=== PATIENT | male | born 1965 | race Caucasian/White ===

== ENCOUNTER 2018-06-24 20:39 | Inpatient (IN) | payer OTHER ==
[~2018-06-24] VITALS: Ht 188 cm; Wt 137.4 kg
[2018-06-24 20:44] VITALS: BP 167/100
[2018-06-24] MEDS ORDERED: LAMICTAL100 MG (20:47)
[2018-06-24] MEDS ORDERED: AMLODIPINE BESY10 MG (20:49)
[2018-06-24] MEDS ORDERED: [UNRECOGNIZED DRUG - OTHER] (20:51)
[2018-06-24 21:31] LABS: ABSOLUTE BASOPHILS 0.2 thou/uL (0.0-0.2); ABSOLUTE EOSINOPHILS 0.4 thou/uL (0.0-0.7); ABSOLUTE LYMPHOCYTES 2.1 thou/uL (0.8-5.3); ABSOLUTE MONOCYTES 0.8 thou/uL (0.0-1.2); ABSOLUTE NEUTROPHILS 11.1 thou/uL (1.6-8.1); BASOPHILS 1.2 %; EOSINOPHILS 2.8 %; HEMATOCRIT 44.8 % (42.0-52.0); HEMOGLOBIN 15.1 gm/dL (14.0-18.0); LYMPHOCYTES 14.3 %; MCH 28.2 pg (26.0-34.0); MCHC 33.8 g/dL (28.0-37.0); MCV 83.5 fL (80.0-100.0); MONOCYTES 5.8 %; MPV 8.1 fl. (7.2-11.1); NUCLEATED RBCS 0 /100WBC; PLATELET COUNT* 282 thou/uL (150-400); POLYS 75.9 %; RBC 5.36 mil/uL (4.50-6.00); RDW-CV 13.6 % (10.5-14.5); WBC 14.6 thou/uL (4.0-11.0)
[2018-06-24 21:39] LABS: CALCIUM 8.9 mg/dL (8.5-10.1); CREATININE 1.1 mg/dL (0.6-1.3); POTASSIUM 3.8 mmol/L (3.5-5.1)
[2018-06-24 21:43] LABS: TOTAL BILIRUBIN 0.2 mg/dL (<0.1-1.0); TOTAL PROTEIN 7.9 g/dL (6.4-8.2)
[2018-06-24 22:53] LABS: URINE BILIRUBIN NEGATIVE (Negative); URINE BLOOD NEGATIVE (Negative); URINE CLARITY CLEAR; URINE COLOR YELLOW; URINE GLUCOSE-RANDOM NEGATIVE (Negative); URINE KETONES NEGATIVE (Negative); URINE LEUKOCYTES-REFLEX NEGATIVE (Negative); URINE NITRITE-REFLEX NEGATIVE (Negative); URINE PROTEIN NEGATIVE (Negative); URINE SPECIFIC GRAVITY <= 1.005 (1.005-1.030); URINE UROBILINOGEN 0.2 E.U./dl (0.2-1.0)
[2018-06-25 03:00] VITALS: BP 128/74
[2018-06-25] MEDS ORDERED: LAMICTAL100 MG PO (03:07)
[2018-06-25] MEDS ORDERED: NORVASC10 MG PO (03:11)
[2018-06-25 03:35] VITALS: BP 139/85
[2018-06-25 08:00] VITALS: BP 144/92
--- NOTE | 2018-06-25 12:48 | EKG ---
[place] [address] ELECTROCARDIOGRAM REPORT Name: LUCIA DANIEL Room: [address] ADM IN [facility].#: [id number] Admission: 06/24/18 Attend Phys: Gilbret Zurita MD Discharge: Date of : 69 Report #: [id number] THIS REPORT FOR: //name// [facility] ED Test Date: 2018-06-24 Test Time: 22:27:00 Pat Name: LUCIA DANIEL Department: Room: [facility] Gender: M [employer]: [place] : 1965 Requested By: Dana Caballero Order Number: [id number] MD: Branden Renee Measurements Intervals [place] Rate: 87 P: 45 ME: 183 QRS: -7 QRSD: 86 T: 40 QT: 371 QTc: 447 Interpretive Statements Sinus rhythm RSR' in V1 or V2, probably normal variant LVH by voltage Nonspecific T-wave flattening No previous ECG available for comparison Electronically Signed On 06-25-2018 12:48:17 TRANSFER PROFESSOR by Branden Renee [email or web address] <ELECTRONICALLY SIGNED> By: Branden Renee MD, FACC 06/25/18 1248 26 Branden Renee MD, FAC /EPI
[2018-06-25 16:00] VITALS: BP 157/95
[2018-06-25 19:05] VITALS: BP 154/104
[2018-06-26] VITALS: BP 128/90
[2018-06-26 09:03] VITALS: BP 149/95
[2018-06-26 09:35] VITALS: BP 149/95
[2018-06-26] MEDS ORDERED: PROTONIX40 M1 PO (11:39)
[2018-06-26 13:11] VITALS: BP 149/95
--- NOTE | 2018-06-28 12:05 | PATH ---
[address] [address] PATHOLOGY RPT PROCEDURE Name: LUCIA MILLARD Room: [address] IN M.R.#: [id number] Admission: 06/24/18 Date of : 69 Discharge: 06/26/18 Report #: [id number] Path Case #: [id number] Accession Number: [id number] . 01 Material submitted: . PART A: DUODENUM BIOPSY PART B: RANDOM COLON . 01 Clinical history: . None provided . 02 Diagnosis: A. Duodenum "duodenum biopsy": - No obvious diagnostic changes. - There is no evidence of acute cryptitis, granulomas, adenomatous changes, changes of sprue or malignancy. . B. Colonic mucosa "random colon biopsy": - No obvious diagnostic changes. - There is no evidence of acute cryptitis, granulomas, adenomatous change or malignancy. . (SHA:suzi; 06/28/2018) QL/06/28/2018 . 02 Electronically signed: . Drew Beth MD, Pathologist NPI- [id number] . 01 Gross description: . A. Received in formalin labeled "Lucia Millard, duodenum BX," are multiple segments of borrero soft tissue measuring 1.3 x 0.4 x 0.2 cm in aggregate dimensions. The specimen is filtered and entirely submitted in cassette A1. . B. Received in formalin labeled "Lucia Millard, random colon biopsies," and additionally labeled on the requisition as "BX," are multiple segments of borrero soft tissue measuring 1.7 x 0.5 x 0.2 cm in aggregate dimensions. The specimen is filtered and entirely submitted in cassette B1. (TSD; 06/27/2018) TOB/TOB . 02 Pathologist provided ICD-10: K56.609 . 02 CPT . 067197, 539211 Specimen Comment: A courtesy copy [place] [address] PATHOLOGY RPT PROCEDURE Name: LUCIA MILLARD Room: [address] IN [facility]#: [id number] Admission: 06/24/18 Date of : 69 Discharge: 06/26/18 Report #: [id number] Path Case #: [id number] Specimen Comment: [phone]. Specimen Comment: Report sent to Performed at: 01 [facility] [address], [place], [place] [id number] MD Joel Crain MD Phone: [phone] Performed at: [address] [facility] [address] [address], [place], [place] [id number] MD Rene Aldridge MD Phone: [phone]
--- NOTE | 2018-06-28 14:51 | CON ---
[address] [address] CONSULTATION Name: LUCIA DANIEL Room: [address]#: [id number] Admission: 06/24/18 Attend Phys: Gilbert Zurita MD Discharge: 06/26/18 Date of : 69 Report #: [id number] THIS REPORT FOR: //name// CC: Gilbert Zurita [facility] physician/PCP DATE OF SERVICE: 06/25/2018 HISTORY OF PRESENT ILLNESS: This is a 52-year-old male with history of acute abdominal pain and nausea, who reports was not able to pass any gas or stool, which prompted him to come to hospital. Since hospitalization, he started having bowel movements this morning and able to pass gas. His abdomen also is softer. He never has had endoscopic evaluation. PAST MEDICAL HISTORY: Significant for history of seizure and hypertension. ALLERGIES: Significant to SULFA. MEDICATIONS: Amlodipine, lamotrigine, and hydrochlorothiazide. SOCIAL HISTORY: The patient is single. He is employed in [employer] and denies tobacco or alcohol use. FAMILY HISTORY: Negative for GI malignancy. PHYSICAL EXAMINATION: VITAL SIGNS: Reveals blood pressure of 144/92, respirations 16, pulse 76, temperature 97.9. LUNGS: Clear. CARDIOVASCULAR: Regular. ABDOMEN: Soft. It is mildly tender to palpation in periumbilical region. Bowel sounds are positive. NEUROLOGIC: The patient is alert, oriented x 3. LABORATORY DATA: Reveal sodium of 141, potassium 3.8, BUN is 11, creatinine 1.1, glucose is 99. Liver function test is within normal limits except elevated ALT of 72. Albumin is 4.0. WBC is 14.6 with hemoglobin of 15.1 and platelet of 282. IMAGING: CT of abdomen and pelvis was obtained on admission. This was significant for mild small-bowel obstruction of unknown etiology. ASSESSMENT AND PLAN: The patient with abdominal pain and evidence of small-bowel obstruction, which seems to have resolved. We will consider endoscopic evaluation to further evaluate his symptoms. [place] [address] CONSULTATION Name: LUCIA DANIEL Room: [address] IN ..#: [id number] Admission: 06/24/18 Attend Phys: Gilbert Zurita MD Discharge: 06/26/18 Date of : 69 Report #: [id number] past couple of years, his stool has been loose. We want to make sure that he does not have any hidden inflammatory bowel disease, i.e., Crohn's. <ELECTRONICALLY SIGNED> By: Zia Anders MD 06/28/18 1451 1210 [id number] Anders MD /nt
== END 2018-06-26 16:20 | disposition home or self-care (01) | DRG 390 ==
LOC: M.ERS 20:39 → M.TBA-ER 23:26 → M.ORTHSURG 23:26
PROVIDERS: Nurse Practitioner Family; ADMIT Internal Medicine
PROC: 0DB98ZX Excision of Duodenum, Via Natural or Artificial Opening Endoscopic, Diagnostic (ICD-10-PCS; principal; 2018-06-26)
PROC: 0DBE8ZX Excision of Large Intestine, Via Natural or Artificial Opening Endoscopic, Diagnostic (ICD-10-PCS; principal; 2018-06-26)
DX: K56.51 Intestinal adhesions [bands], with partial obstruction (principal); I10 Essential (primary) hypertension; G40.909 Epilepsy, unspecified, not intractable, without status epilepticus; D72.829 Elevated white blood cell count, unspecified; F11.10 Opioid abuse, uncomplicated; R19.7 Diarrhea, unspecified; R50.9 Fever, unspecified; K21.0 Gastro-esophageal reflux disease with esophagitis; K22.2 Esophageal obstruction; K44.9 Diaphragmatic hernia without obstruction or gangrene; K64.8 Other hemorrhoids; K31.89 Other diseases of stomach and duodenum; R12 Heartburn; Z79.899 Other long term (current) drug therapy; Z88.2 Allergy status to sulfonamides